=== PATIENT | male | born 1945 ===

== ENCOUNTER 2024-02-21 16:29 | Emergency (ER) | payer MEDICARE, OTHER ==
[~2024-02-21] VITALS: Ht 167.6 cm; Wt 63.6 kg
[2024-02-21 16:35] VITALS: TEMP 98.3
[2024-02-21] MEDS ORDERED: OXYB5TAB20 PO (16:36)
[2024-02-21] MEDS ORDERED: TAMS0.4C94 PO (16:36)
[2024-02-21] MEDS ORDERED: SIMV-46 PO (16:36)
[2024-02-21 18:52] LABS: APPEARANCE,URINE CLEAR (CLEAR); BILIRUBIN,URINE NEGATIVE (NEGATIVE); COLOR,URINE LIGHT YELLOW (YELLOW); GLUCOSE, URINE (UA) NEGATIVE (NEGATIVE); KETONES,URINE NEGATIVE (NEGATIVE); LEUKOCYTE ESTERASE ,URINE NEGATIVE (NEGATIVE); NITRATE,URINE NEGATIVE (NEGATIVE); OCCULT BLOOD,URINE SMALL (NEGATIVE); PROTEIN,URINE TRACE mg/dL (NEGATIVE); SPECIFIC GRAVITIY, URINE 1.018 (1.003-1.030); UROBILINOGEN,URINE <=1.0 mg/dL (<=1.0)
[2024-02-21 19:05] LABS: WBC,URINE 0-2 /HPF (0-5)
[2024-02-21 19:06] LABS: BACTERIA,URINE Moderate /HPF (None Seen); HYALINE CASTS, URINE 0-2 /LPF (None Seen); MUCUS,URINE Few LPF (None Seen); SQUAMOUS EPITHELIAL CELL,UR Few /LPF (None Seen)
[2024-02-21 20:00] VITALS: BP 150/84; PULSE 99; RESP 18; O2SAT 97
== END 2024-02-21 20:16 | disposition home or self-care (01) ==
LOC: EMS 16:29
DX: N40.1 Benign prostatic hyperplasia with lower urinary tract symptoms (principal); C61 Malignant neoplasm of prostate; R33.8 Other retention of urine; I10 Essential (primary) hypertension; Z85.46 Personal history of malignant neoplasm of prostate; Z79.899 Other long term (current) drug therapy
CPT/HCPCS: 51702; 81001; 87077; 87086; 99284; Z7502